=== PATIENT | male | born 1995 | race Caucasian/White ===

== ENCOUNTER → 2016-04-25 | Outpatient (CLI) | payer OTHER ==
[~2016-04-25] MED LIST: CARB200 PO; HYDR-3534 PO; NAPR550 PO
== END ==
LOC: PLAB 09:29
PROVIDERS: ATTEND Psychiatry & Neurology Neurology
DX: G40.909 Epilepsy, unspecified, not intractable, without status epilepticus (principal)
CPT/HCPCS: 80156

== ENCOUNTER → 2016-07-14 | Outpatient (CLI) | payer OTHER | LOC: PLAB 08:56 | PROVIDERS: ATTEND Psychiatry & Neurology Neurology | DX: G40.909 Epilepsy, unspecified, not intractable, without status epilepticus (principal) | CPT/HCPCS: 80156 ==

== ENCOUNTER 2016-10-20 17:48 | Emergency (ER) | payer OTHER ==
[~2016-10-20] VITALS: Ht 175.3 cm; Wt 66.0 kg
[2016-10-20 18:04] VITALS: BP 149/94; PULSE 70; RESP 16; TEMP 98.8; O2SAT 98
[2016-10-20] MEDS ORDERED: CARB200T PO ×2 (18:16)
--- NOTE | 2016-10-20 18:47 | PD ---
HPI Chief Complaint: Seizure Time Seen by Provider: 18:32 Travel History International Travel<30 days: No Contact w/Intl Traveler<30days: No Traveled to known affect area: No History of Present Illness HPI 21yo M with PMH of epilepsy on tegretol presents to the ED with c/o throat pain 2 days ago. Then he started having productive cough, nasal congestion, and episode of NBNB vomiting yesterday. States he has midsternal chest pain that is sharp when he takes a deep breath. Also feels sob. +Low grade fever yesterday. +Generalized weakness. Pt states that he had 4 focal seizures today and during those focal seizures, he did not have any LOC or fall. Pt follows with Dr. Palomares and last visit was about 1 week ago. Last generalized tonic clonic seizure was 2 years ago. Denies any abdominal pain, focal weakness or numbness. Pt also had reactive airway disease as a child and was using albuterol. PFSH Past Medical History Arthritis: No Autoimmune Disease: No Cancer: No Cardiovascular Problems: No Cerebrovascular Accident: No Diabetes: No Diminished Hearing: No Endocrine: No Gastrointestinal Disorders: No Genitourinary: No Headaches: Yes Hepatitis: No Hiatal Hernia: No Hypertension: No Immune Disorder: No Medical other: No Musculoskeletal: Yes (FX LT WRIST, FX LEFT ANKLE) Neurologic: Yes Psychiatric: No Reproductive: No Respiratory: No Immunizations Current: Yes Migraines: No Seizures: Yes Thyroid Disease: No Past Surgical History Abdominal Surgery: No AICD: No Body Medical Devices: LEFT ANKLE HARDWARE Cardiac Surgery: No Ear Surgery: No Endocrine Surgery: No Eye Surgery: No Genitourinary Surgery: Yes (Right inguinal hernia repair) Gynecologic Surgery: No Joint Replacement: No Oral Surgery: Yes (wisdom tooth extraction x 4) Pacemaker: No Thoracic Surgery: No Other Surgery: Yes (I &D on left leg on 07/03/13) Social History Alcohol Use: Yes ("MAYBE ONCE A MONTH") Tobacco Use: No Substance Use: Yes (ROSSANA OCCASIONALLY) Allergies-Medications (Allergen,Severity, Reaction): Coded Allergies: No Known Allergies (Verified , 10/20/16) Reported Meds & Prescriptions Reported Meds & Active Scripts Active Proventil Hfa 6.7 GM Inh (Albuterol Sulfate) 90 Mcg/Act Aer 2 Puff INH Q4-6H PRN Reported Carbamazepine 200 Mg Tab 400 Mg PO HS Carbamazepine 200 Mg Tab 200 Mg PO DAILY Review of Systems Except as stated in HPI: all other systems reviewed are Neg Physical Exam Narrative GENERAL: 21yo M not in distress. SKIN: Focused skin assessment warm/dry. HEAD: Atraumatic. Normocephalic. EYES: Pupils equal and round at 4mm bilaterally. EOMI. No scleral icterus. No injection or drainage. ENT: No nasal bleeding or discharge. Mucous membranes pink and moist. NECK: Trachea midline. No JVD. No nuchal rigidity. CARDIOVASCULAR: Regular rate and rhythm. No murmur appreciated. RESPIRATORY: No accessory muscle use. Inspiratory wheezing. GASTROINTESTINAL: Abdomen soft, non-tender, nondistended. No rebound tenderness or guarding. MUSCULOSKELETAL: No obvious deformities. No clubbing. No cyanosis. No edema. NEUROLOGICAL: Awake and alert. No obvious cranial nerve deficits. Motor grossly within normal limits. Normal speech. PSYCHIATRIC: Appropriate mood and affect; insight and judgment normal. Data Data Last Documented VS Vital Signs Date Time Temp Pulse Resp B/P Pulse Ox O2 Delivery O2 Flow Rate FiO2 10/20/16 21:20 98.4 83 17 119/66 98 10/20/16 20:22 Room Air Orders Complete Blood Count With Diff (10/20/16 18:44) Basic Metabolic Panel (Bmp) (10/20/16 18:44) Magnesium (Mg) (10/20/16 18:44) Chest, Single Ap (10/20/16 ) Group A Rapid Strep Screen (10/20/16 18:44) Urinalysis - C+S If Indicated (10/20/16 18:44) Carbamazepine (Tegretol) (10/20/16 18:44) D-Dimer (10/20/16 18:47) Prothrombin Time / Inr (Pt) (10/20/16 18:47) Act Partial Throm Time (Ptt) (10/20/16 18:47) Albuterol-Ipratropium Neb (Duoneb Neb) (10/20/16 19:00) Troponin I (10/20/16 18:44) Electrocardiogram (10/20/16 ) Strep Culture (Group A) (10/20/16 19:10) Sodium Chlor 0.9% 1000 Ml Inj (Ns 1000 M (10/20/16 20:00) Ct Pulmonary Angiogram (10/20/16 ) Iohexol 350 Inj (Omnipaque 350 Inj) (10/20/16 20:28) Labs Laboratory Tests Test 10/20/16 10/20/16 19:10 19:25 White Blood Count 7.2 TH/MM3 Red Blood Count 5.12 MIL/MM3 Hemoglobin 15.3 GM/DL Hematocrit 45.0 % Mean Corpuscular Volume 87.9 FL Mean Corpuscular Hemoglobin 29.8 PG Mean Corpuscular Hemoglobin 33.9 % Concent Red Cell Distribution Width 11.7 % Platelet Count 179 TH/MM3 Mean Platelet Volume 7.6 FL Neutrophils (%) (Auto) 67.4 % Lymphocytes (%) (Auto) 20.8 % Monocytes (%) (Auto) 7.6 % Eosinophils (%) (Auto) 3.8 % Basophils (%) (Auto) 0.4 % Neutrophils # (Auto) 4.9 TH/MM3 Lymphocytes # (Auto) 1.5 TH/MM3 Monocytes # (Auto) 0.5 TH/MM3 Eosinophils # (Auto) 0.3 TH/MM3 Basophils # (Auto) 0.0 TH/MM3 CBC Comment DIFF FINAL Differential Comment Prothrombin Time 10.8 SEC Prothromb Time International 1.0 RATIO Ratio Activated Partial 30.1 SEC Thromboplast Time D-Dimer Quantitative (PE/DVT) 0.77 MG/L FEU Sodium Level 142 MEQ/L Potassium Level 4.5 MEQ/L Chloride Level 109 MEQ/L Carbon Dioxide Level 27.6 MEQ/L Anion Gap 5 MEQ/L Blood Urea Nitrogen 16 MG/DL Creatinine 0.99 MG/DL Estimat Glomerular Filtration 94 ML/MIN Rate Random Glucose 92 MG/DL Calcium Level 9.4 MG/DL Magnesium Level 2.3 MG/DL Troponin I LESS THAN 0.02 NG/ML Carbamazepine (Tegretol) Level 7.1 MCG/ML Urine Color YELLOW Urine Turbidity CLEAR Urine pH 6.0 Urine Specific [place] 1.026 Urine Protein TRACE mg/dL Urine Glucose (UA) NEG mg/dL Urine Ketones NEG mg/dL Urine Occult Blood NEG Urine Nitrite NEG Urine Bilirubin NEG Urine Leukocyte Esterase NEG Urine WBC 0-2 /hpf Urine Squamous Epithelial 0-5 /hpf Cells Microscopic Urinalysis Comment CULT NOT INDICATED MDM Medical Decision Making Medical Screen Exam Complete: Yes Emergency Medical Condition: Yes Differential Diagnosis Pneumonia vs. URI vs. viral syndrome vs. electrolyte abnormality Narrative Course 21yo M with epilepsy here with multiple complaints. Pt has URI symptoms and is wheezing on exam. Since albuterol worked for him as a child, will give a few treatments. Pt was seen at the end of my shift so care was transferred to [facility] ED attending Dr. Ruiz. Will obtain labs, CXR and reevaluate. Diagnosis Primary Impression: Mild reactive airways disease Scripts Albuterol 6.7 GM Inh (Proventil Hfa 6.7 GM Inh)90 Mcg/Act Aer2 Puff INH Q4-6H PRN (SHORTNESS OF BREATH) #1 INHALER Ref 0 Prov:Nati Ruiz MD 10/20/16 Karen Byrne DO Oct 20, 2016 18:47
[2016-10-20 19:00] VITALS: BP 132/72; PULSE 68; RESP 17; O2SAT 98
[2016-10-20] MEDS: RESP: ALBUTEROL 2.5 MG/IPRATROPIUM 0.5 MG NEB (SCH) INH (19:00)
--- NOTE | 2016-10-20 19:12 | PD ---
Physical Exam Date Seen by Provider: Oct 20, 2016 Time Seen by Provider: 19:11 Narrative Accepted in transfer of care from Dr. Byrne GENERAL: Well-developed well-nourished male in no acute distress no respiratory distress SKIN: Warm and dry. NECK: Supple, trachea midline. No JVD or lymphadenopathy. CARDIOVASCULAR: Regular rate and rhythm without murmurs, gallops, or rubs. RESPIRATORY: Breath sounds equal bilaterally few end expiratory wheezes. No accessory muscle use. MUSCULOSKELETAL: No cyanosis, or edema. Data Data Last Documented VS Vital Signs Date Time Temp Pulse Resp B/P Pulse Ox O2 Delivery O2 Flow Rate FiO2 10/20/16 20:22 90 18 112/83 95 Room Air 10/20/16 18:04 98.8 Orders Complete Blood Count With Diff (10/20/16 18:44) Basic Metabolic Panel (Bmp) (10/20/16 18:44) Magnesium (Mg) (10/20/16 18:44) Chest, Single Ap (10/20/16 ) Group A Rapid Strep Screen (10/20/16 18:44) Urinalysis - C+S If Indicated (10/20/16 18:44) Carbamazepine (Tegretol) (10/20/16 18:44) D-Dimer (10/20/16 18:47) Prothrombin Time / Inr (Pt) (10/20/16 18:47) Act Partial Throm Time (Ptt) (10/20/16 18:47) Albuterol-Ipratropium Neb (Duoneb Neb) (10/20/16 19:00) Troponin I (10/20/16 18:44) Electrocardiogram (10/20/16 ) Strep Culture (Group A) (10/20/16 19:10) Sodium Chlor 0.9% 1000 Ml Inj (Ns 1000 M (10/20/16 20:00) Ct Pulmonary Angiogram (10/20/16 ) Iohexol 350 Inj (Omnipaque 350 Inj) (10/20/16 20:28) Labs Laboratory Tests Test 10/20/16 10/20/16 19:10 19:25 White Blood Count 7.2 TH/MM3 Red Blood Count 5.12 MIL/MM3 Hemoglobin 15.3 GM/DL Hematocrit 45.0 % Mean Corpuscular Volume 87.9 FL Mean Corpuscular Hemoglobin 29.8 PG Mean Corpuscular Hemoglobin 33.9 % Concent Red Cell Distribution Width 11.7 % Platelet Count 179 TH/MM3 Mean Platelet Volume 7.6 FL Neutrophils (%) (Auto) 67.4 % Lymphocytes (%) (Auto) 20.8 % Monocytes (%) (Auto) 7.6 % Eosinophils (%) (Auto) 3.8 % Basophils (%) (Auto) 0.4 % Neutrophils # (Auto) 4.9 TH/MM3 Lymphocytes # (Auto) 1.5 TH/MM3 Monocytes # (Auto) 0.5 TH/MM3 Eosinophils # (Auto) 0.3 TH/MM3 Basophils # (Auto) 0.0 TH/MM3 CBC Comment DIFF FINAL Differential Comment Prothrombin Time 10.8 SEC Prothromb Time International 1.0 RATIO Ratio Activated Partial 30.1 SEC Thromboplast Time D-Dimer Quantitative (PE/DVT) 0.77 MG/L FEU Sodium Level 142 MEQ/L Potassium Level 4.5 MEQ/L Chloride Level 109 MEQ/L Carbon Dioxide Level 27.6 MEQ/L Anion Gap 5 MEQ/L Blood Urea Nitrogen 16 MG/DL Creatinine 0.99 MG/DL Estimat Glomerular Filtration 94 ML/MIN Rate Random Glucose 92 MG/DL Calcium Level 9.4 MG/DL Magnesium Level 2.3 MG/DL Troponin I LESS THAN 0.02 NG/ML Carbamazepine (Tegretol) Level 7.1 MCG/ML Urine Color YELLOW Urine Turbidity CLEAR Urine pH 6.0 Urine Specific [place] 1.026 Urine Protein TRACE mg/dL Urine Glucose (UA) NEG mg/dL Urine Ketones NEG mg/dL Urine Occult Blood NEG Urine Nitrite NEG Urine Bilirubin NEG Urine Leukocyte Esterase NEG Urine WBC 0-2 /hpf Urine Squamous Epithelial 0-5 /hpf Cells Microscopic Urinalysis Comment CULT NOT INDICATED [facility] Medical Record Reviewed: Yes Supervised Visit with AIYANA: No Interpretation(s) EKG normal sinus rhythm rate 83 incomplete right bundle-branch block no acute ST elevation or injury pattern change noted Chest x-ray no lobar infiltrate Rapid strep antigen negative CBC is automated differential values in normal range Metabolic panel grossly within normal limits; troponin I: Less than 0.02, not elevated Coagulation studies and normal range; d-dimer elevated at 0.77 Tegretol level: 7.1, therapeutic CBC & BMP Diagram 10/20/16 19:10 Vital Signs Date Time Temp Pulse Resp B/P Pulse Ox O2 Delivery O2 Flow Rate FiO2 10/20/16 20:22 90 18 112/83 95 Room Air 10/20/16 19:00 68 17 132/72 98 Room Air 10/20/16 18:04 98.8 70 16 149/94 98 Last Impressions Chest X-Ray 10/20/16 0000 Signed Impressions: Service Date/Time: October 19:20 - CONCLUSION: No acute cardiopulmonary disease. Martha Alston MD CT Angiography 10/20/16 0000 Signed Impressions: Service Date/Time: October 19:59 - CONCLUSION: Unremarkable study. Martha Alston MD Differential Diagnosis Accepted in transfer of care from Dr. Byrne; please refer to her dictation Narrative Course Accepted in transfer of care from Dr. Byrne; follow up of pending diagnostics and disposition Patient reports that he is symptomatically improved after DuoNeb updraft; patient informed that d-dimer is elevated EKG shows incomplete right bundle branch block in view of pleuritic type chest pain with breath will proceed with CT pulmonary angiogram to evaluate for PE chest x-ray reveals no infiltrate Patient informed that rapid strep antigen is negative and Trileptal level is therapeutic; patient continues to report feeling improved; patient reports now that not only did he have for 5-10 seconds induration focal-type seizures typical for him but yesterday had an episode of 10-15 seconds of typical focal type seizure and then the day before on Monday actually had a three-minute episode of focal type seizure activity and that episode of vomiting afterwards. Patient did not contact his neurologist for any of these events. There is been no change in his medications. Patient has had mild increase stress to assist him because of respiratory illness but does not report any other stressors or sleep deprivation. Patient aware of lab results including therapeutic range of Tegretol 0.1; call placed to patient's neurologist Dr. Palomares but unable to contact this provider therefore consult to the emergency department to field operations farm manager neurologist Dr. Camarillo recommends patient have increased dosing of his Tegretol to 400 mg twice daily increasing the morning dose from 200 mg to 400 mg and continue his evening dose of 400 mg at bedtime. She is to follow up closely with his primary neurologist times one day. Patient is increase hydration. No work until follow-up with her neurologist. Monitor temperature every 4 hours and take appropriate antipyretics. Physician Communication Physician Communication call placed to neurology Diagnosis Primary Impression: Viral syndrome Additional Impressions: Seizure disorder Mild reactive airways disease Referrals: Neurologist 1 day Primary Care Physician call for appointment Patient Instructions: General Instructions Additional Instruction: Increase fluid hydration No work 2 days Follow-up with Dr. Palomares: Office in a.m. Follow-up with primary care provider Return to the emergency department for any concerns or change in condition Monitor temperature every 4 hours with thermometer and take as needed acetaminophen/Tylenol every 4 hours for fever 100.4F or greater and/or ibuprofen/Advil/Motrin 400-600 mg as often as every 6 hours as needed for fever 100.4F or greater or for pain associated with inflammation Increase Tegretol dosing to 400 mg twice daily Use inhaler as prescribed as needed for wheezing Med/Other Pt SpecificInfo: Prescription(s) given Scripts Albuterol 6.7 GM Inh (Proventil Hfa 6.7 GM Inh)90 Mcg/Act Aer2 Puff INH Q4-6H PRN (SHORTNESS OF BREATH) #1 INHALER Ref 0 Prov:Nati Ruiz MD 10/20/16 Disposition: 01 DISCHARGE HOME Condition: Stable Nati Ruiz MD Oct 20, 2016 19:12
[2016-10-20 19:19] LABS: AUTOMATED NEUTROPHIL # 4.9 TH/MM3 (1.8-7.7); BASOPHIL % 0.4 % (0.0-2.0); EOSINOPHIL # 0.3 TH/MM3 (0-0.4); EOSINOPHIL % 3.8 % (0.0-4.0); HEMO FLAGS DIFF FINAL; LYMPH % 20.8 % (9.0-44.0); LYMPHOCYTE # 1.5 TH/MM3 (1.0-4.8); MEAN CELL VOLUME 87.9 FL (80.0-100.0); MEAN CORPUSCULAR HEMOGLOBIN 29.8 PG (27.0-34.0); MEAN CORPUSCULAR HGB CONC 33.9 % (32.0-36.0); MONO % 7.6 % (0.0-8.0); NEUT % 67.4 % (16.0-70.0); PLATELET COUNT 179 TH/MM3 (150-450); RED BLOOD COUNT 5.12 MIL/MM3 (4.50-5.90); RED CELL DISTRIBUTION WIDTH 11.7 % (11.6-17.2); WHITE BLOOD COUNT 7.2 TH/MM3 (4.0-11.0)
[2016-10-20 19:26] LABS: CHLORIDE 109 MEQ/L (98-107); POTASSIUM 4.5 MEQ/L (3.5-5.1); SODIUM (NA) 142 MEQ/L (136-145)
[2016-10-20 19:29] LABS: ANION GAP 5 MEQ/L (5-15); BICARBONATE 27.6 MEQ/L (21.0-32.0); MAGNESIUM 2.3 MG/DL (1.5-2.5)
[2016-10-20 19:30] LABS: BLOOD UREA NITROGEN 16 MG/DL (7-18)
[2016-10-20 19:33] LABS: GLOMERULAR FILTRATION RATE 94 ML/MIN (>89)
[2016-10-20 19:34] LABS: BLOOD, URINE NEG (NEG); GLUCOSE,URINE NEG (NEG); KETONE, URINE NEG (NEG); NITRITE,URINE NEG (NEG)
[2016-10-20 19:35] LABS: APTT (PATIENT) 30.1 SEC (24.3-30.1); PROTHROMBIN TIME - PATIENT 10.8 SEC (9.8-11.6)
[2016-10-20 19:45] LABS: URINE COLOR YELLOW (YELLW/STRAW)
[2016-10-20 19:46] LABS: COMMENT (UR) CULT NOT INDICATED; CULTURE IF INDICATED CULT NOT INDICATED; SQUAMOUS EPITHELIAL CELL URINE 0-5 /hpf (0-5); WBC, URINE 0-2 /hpf (0-5)
--- NOTE | 2016-10-20 19:50 | RADRPT ---
EXAM DATE/TIME: 10/20/2016 19:20 [facility] COMPARISON: CHEST SINGLE AP, July 14, 2013, 16:17. INDICATIONS : Shortness of breath, cough, congestion, and sore throat. MEDICAL HISTORY : Seizures. SURGICAL HISTORY : Left ankle. ENCOUNTER: Initial ACUITY: 1 day PAIN SCORE: 0/10 LOCATION: Bilateral chest FINDINGS: The lungs are clear without infiltrate, nodule, or mass. There is no appreciable pleural effusion fo r technique. Heart and mediastinum are unremarkable. CONCLUSION: No acute cardiopulmonary disease. Martha Alston MD on October 20, 2016 at 19:46 Board Certified Radiologist. This report was verified electronically.
[2016-10-20] MEDS ORDERED: SODIUM CHLOR 0.9% 1000 ML INJ 1,000 ML IV ONE (20:00)
[2016-10-20 20:22] VITALS: BP 112/83; PULSE 90; RESP 18; O2SAT 95
[2016-10-20] MEDS ORDERED: IOHEXOL 350 MG/ML 10 ML VIAL (for RAD DIAG) IV ONE (20:28)
--- NOTE | 2016-10-20 20:42 | RADRPT ---
EXAM DATE/TIME: 10/20/2016 19:59 [facility] COMPARISON: No previous studies available for comparison. INDICATIONS : Status post seizure activity. Patient short of breath. IV CONTRAST: 75 cc Omnipaque 350 (iohexol) IV RADIATION DOSE: 7.26 CTDIvol (mGy) MEDICAL HISTORY : Seizures. Hernia, inguinal. SURGICAL HISTORY : Inguinal hernia repair. ENCOUNTER: Initial ACUITY: 1 day PAIN SCALE: 4/10 LOCATION: chest TECHNIQUE: Volumetric scanning of the chest was performed using a pulmonary embolism protocol MIP images were re constructed. Using automated exposure control and adjustment of the mA and/or kV according to patien t size, radiation dose was kept as low as reasonably achievable to obtain optimal diagnostic quality images. DICOM format image data is available electronically for review and comparison. Follow-up recommendations for incidentally detected pulmonary nodules are based at a minimum on nodul e size and patient risk factors according to Fleischner Society Guidelines. FINDINGS: The lungs are clear without infiltrate, nodule, or mass. There is no pleural effusion. No appreciab le pathological adenopathy is seen within the mediastinum. There is no evidence for PE for technique. CONCLUSION: Unremarkable study. Martha Alston MD on October 20, 2016 at 20:39 Board Certified Radiologist. This report was verified electronically.
[2016-10-20] MEDS ORDERED: ALBU6.7H INH (21:18)
[2016-10-20 21:20] VITALS: BP 119/66; TEMP 98.4
--- NOTE | 2016-10-22 11:02 | EKG ---
Date Performed: 10/20/2016 Time Performed: 19:15:30 PTAGE: 21 years EKG: Sinus rhythm WITH SINUS ARRHYTHMIA INCOMPLETE RIGHT BUNDLE BRANCH BLOCK BORDERLINE ECG PREVIOUS TRACING : 09/23/2013 14.56 DOCTOR: Barrington Botello Interpretating Date/Time 10/22/2016 10:56:11
== END 2016-10-20 21:44 | disposition home or self-care (01) ==
LOC: PHED 17:48
DX: B34.9 Viral infection, unspecified (principal); G40.409 Other generalized epilepsy and epileptic syndromes, not intractable, without status epilepticus; J45.909 Unspecified asthma, uncomplicated; I45.10 Unspecified right bundle-branch block; R06.02 Shortness of breath; R53.1 Weakness; Z79.899 Other long term (current) drug therapy
CPT/HCPCS: 71010; 71275; 80048; 80156; 81001; 83735; 84484; 85025; 85379; 85610; 85730; 87081; 87880; 93005; 94640; 94664; 96360; 99285; J7030; Q9967

== ENCOUNTER 2016-12-18 12:48 | Emergency (ER) | payer OTHER ==
[~2016-12-18 12:48] MED LIST changes: +ALBU6.7H INH; -CARB200 PO; +CARB200T PO; -HYDR-3534 PO; -NAPR550 PO
[2016-12-18 12:50] VITALS: BP 132/66; PULSE 82; RESP 20; TEMP 98; O2SAT 99
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
[2016-12-18 13:29] VITALS: BP 102/55; PULSE 82; RESP 20; O2SAT 100
[2016-12-18] MEDS ORDERED: ACETAMINOPHEN 325 MG TAB PO ONE (13:30)
[2016-12-18 14:22] VITALS: BP 102/53; PULSE 63; RESP 20
== END 2016-12-18 14:54 | disposition home or self-care (01) ==
LOC: PHED 12:48
DX: G40.909 Epilepsy, unspecified, not intractable, without status epilepticus (principal)
CPT/HCPCS: 80156; 99283

== ENCOUNTER 2016-12-18 15:48 | Inpatient (IN) | payer OTHER ==
[~2016-12-18] VITALS: Ht 175.3 cm; Wt 72.0 kg
[2016-12-18 15:55] VITALS: BP 145/71; PULSE 84; RESP 16; TEMP 98; O2SAT 97
[2016-12-18 16:10] VITALS: O2SAT 98
[2016-12-18 16:14] LABS: AUTOMATED NEUTROPHIL # 7.1 TH/MM3 (1.8-7.7); BASOPHIL # 0.1 TH/MM3 (0-0.2); BASOPHIL % 0.7 % (0.0-2.0); EOSINOPHIL % 0.5 % (0.0-4.0); HEMATOCRIT 43.1 % (39.0-51.0); HEMO FLAGS DIFF FINAL; LYMPH % 8.1 % (9.0-44.0); LYMPHOCYTE # 0.7 TH/MM3 (1.0-4.8); MEAN CELL VOLUME 89.7 FL (80.0-100.0); MEAN CORPUSCULAR HEMOGLOBIN 30.8 PG (27.0-34.0); MEAN CORPUSCULAR HGB CONC 34.3 % (32.0-36.0); MONO % 2.3 % (0.0-8.0); NEUT % 88.4 % (16.0-70.0); PLATELET COUNT 173 TH/MM3 (150-450); RED BLOOD COUNT 4.81 MIL/MM3 (4.50-5.90); RED CELL DISTRIBUTION WIDTH 12.3 % (11.6-17.2); WHITE BLOOD COUNT 8.1 TH/MM3 (4.0-11.0)
[2016-12-18] MEDS ORDERED: SODIUM CHLORIDE 0.9% FLUSH 10 ML FLUSH IVF PRN ×2 (16:15→17:45)
[2016-12-18 16:24] LABS: CHLORIDE 107 MEQ/L (98-107); POTASSIUM 4.4 MEQ/L (3.5-5.1); SODIUM (NA) 139 MEQ/L (136-145)
[2016-12-18 16:28] LABS: ANION GAP 8 MEQ/L (5-15); BICARBONATE 24.3 MEQ/L (21.0-32.0); BLOOD UREA NITROGEN 10 MG/DL (7-18)
[2016-12-18] MEDS ORDERED: FOSPHENYTOIN INJ 1,000 MGPE in SODIUM CHLORIDE 0.9% INJ 50 ML IV ONE (16:30)
[2016-12-18 16:31] LABS: ALT (GPT) 50 U/L (12-78); AST (GOT) 26 U/L (15-37); GLOMERULAR FILTRATION RATE 94 ML/MIN (>89)
[2016-12-18 16:33] LABS: TOTAL BILIRUBIN ADULT 0.2 MG/DL (0.2-1.0)
[2016-12-18 16:34] LABS: ALKALINE PHOSPHATASE 72 U/L (45-117)
--- NOTE | 2016-12-18 16:40 | RADRPT ---
EXAM DATE/TIME: 12/18/2016 16:22 [facility] COMPARISON: CT BRAIN W/O CONTRAST, July 14, 2013, 17:05. INDICATIONS : Seizure. RADIATION DOSE: 58.35 CTDIvol (mGy) MEDICAL HISTORY : Seizures. SURGICAL HISTORY : None. ENCOUNTER: Initial ACUITY: 1 day PAIN SCALE: 0/10 LOCATION: cranial TECHNIQUE: Multiple contiguous axial images were obtained of the head. Using automated exposure control and adj ustment of the mA and/or kV according to patient size, radiation dose was kept as low as reasonably a chievable to obtain optimal diagnostic quality images. DICOM format image data is available electro nically for review and comparison. FINDINGS: CEREBRUM: The ventricles are normal for age. No evidence of midline shift, mass lesion, hemorrhage or acute in farction. No extra-axial fluid collections are seen. POSTERIOR FOSSA: The cerebellum and brainstem are intact. The 4th ventricle is midline. The cerebellopontine angle i s unremarkable. EXTRACRANIAL: The visualized portion of the orbits is intact. SKULL: The calvaria is intact. No evidence of skull fracture. CONCLUSION: Negative exam Donell Lara MD on December 18, 2016 at 16:37 Board Certified Radiologist. This report was verified electronically.
[2016-12-18 16:42] VITALS: BP 118/71; PULSE 73; RESP 20; O2SAT 98
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
[2016-12-18] MEDS ORDERED: SODIUM CHLOR 0.9% 1000 ML INJ 1,000 ML IV ONE (17:30)
[2016-12-18] MEDS ORDERED: KETOROLAC TROMETHAMINE 30 MG/ML (IVP) VIAL IV PUSH ONE (17:30)
[2016-12-18] MEDS ORDERED: SODIUM CHLORIDE 0.9% FLUSH 10 ML FLUSH IV FLUSH PRN (17:45)
[2016-12-18] MEDS ORDERED: NALOXONE HCL 0.4 MG/ML AMP IV PRN (17:45)
[2016-12-18] MEDS ORDERED: BISACODYL 10 MG SUPP RECTAL PRN (18:00)
[2016-12-18] MEDS ORDERED: LORazepam 2 MG/ML VIAL IV PUSH PRN (18:00)
[2016-12-18] MEDS ORDERED: SENNOSIDES 8.6 MG TAB PO PRN (18:00)
[2016-12-18] MEDS ORDERED: MAGNESIUM HYDROXIDE SUSP 30 ML CUP PO PRN (18:00)
[2016-12-18] MEDS ORDERED: LACTULOSE SYRUP 20 GM/30 ML CUP PO PRN (18:00)
[2016-12-18] MEDS ORDERED: ACETAMINOPHEN 325 MG TAB PO PRN (18:00)
[2016-12-18] MEDS ORDERED: ACETAMINOPHEN/HYDROcodone 325 MG/5 MG TAB PO PRN (18:00)
--- NOTE | 2016-12-18 18:38 | HHI.HP ---
[facility] Service [facility] Primary Care Physician Shashi Lai MD Admission Diagnosis uncontrolled seizure Diagnoses: (1) Recurrent seizures (2) Seizure disorder Travel History International Travel<30 Days: No Contact w/Intl Traveler <30 Da: No Traveled to Known Affected Are: No History of Present Illness This is a 21 year-old male with past medical history of seizure disorder who presents today with 3 seizures. History obtained from the patient and his girlfriend. Normally he has partial seizures which consist of lip smacking however this morning his girlfriend states that he had a sustained tonic-clonic seizure lasting 10 minutes. She rolled him on his side. There is no tongue bite, loss of bowel or bladder continence. [facility] was called however the patient declined to come to the hospital. He slept and when he awoke several hours later he had another sustained seizure. [facility] was called again and he was brought to the hospital. He was discharged from the emergency department and his girlfriend states on the on the way home he sustained another seizure and thus was brought back to the emergency department. He was loaded with 1000 phenytoin equivalents of Cerebyx in the emergency department. The patient denies any recent changes to his seizure medications. He takes Tegretol. He denies headache, neck pain, fever, chills. Denies drug use. His neurologist is Dr. Palomares. Past Family Social History Past Medical History Seizure disorder Migraines Past Surgical History Ankle surgery in the right ankle Reported Medications Allergies Coded Allergies Type Severity Reaction Last Updated Verified No Known Allergies 12/18/16 Yes Active Scripts Medications Dose Route/Sig Max Daily Dose Days Date Category Carbamazepine 200 Mg Tab 400 Mg PO HS 10/20/16 Reported Carbamazepine 200 Mg Tab 200 Mg PO DAILY 10/20/16 Reported Allergies: Coded Allergies: No Known Allergies (Verified , 12/18/16) Family History Negative for seizures Social History Denies alcohol tobacco or drug use Physical Exam Vital Signs Vital Signs Date Time Temp Pulse Resp B/P (MAP) Pulse Ox O2 Delivery O2 Flow Rate FiO2 12/18/16 16:42 73 20 118/71 (87) 98 12/18/16 16:10 98 12/18/16 15:55 98.0 84 16 145/71 (95) 97 Physical Exam GENERAL: This is a well-nourished, well-developed patient, in no apparent distress. SKIN: No rashes, ecchymoses or lesions. Cool and dry. HEAD: Atraumatic. Normocephalic. No temporal or scalp tenderness. EYES: Pupils equal round and reactive. Extraocular motions intact. No scleral icterus. No injection or drainage. ENT: No tongue lacerations. Throat without erythema, tonsillar hypertrophy or exudate. Uvula midline. Airway patent. NECK: Trachea midline. No JVD or lymphadenopathy. Supple, nontender, no meningeal signs. CARDIOVASCULAR: Regular rate and rhythm without murmurs, gallops, or rubs. RESPIRATORY: Clear to auscultation. Breath sounds equal bilaterally. No wheezes , rales, or rhonchi. GASTROINTESTINAL: Abdomen soft, non-tender, nondistended. No hepato-splenomegaly , or palpable masses. No guarding. MUSCULOSKELETAL: Extremities without clubbing, cyanosis, or edema. No joint tenderness, effusion, or edema noted. NEUROLOGICAL: Awake and alert. Cranial nerves II through XII intact. Motor and sensory grossly within normal limits. Five out of 5 muscle strength in all muscle groups. Normal speech. Laboratory Laboratory Tests Test 12/18/16 16:10 White Blood Count 8.1 Red Blood Count 4.81 Hemoglobin 14.8 Hematocrit 43.1 Mean Corpuscular Volume 89.7 Mean Corpuscular Hemoglobin 30.8 Mean Corpuscular Hemoglobin Concent 34.3 Red Cell Distribution Width 12.3 Platelet Count 173 Mean Platelet Volume 7.4 Neutrophils (%) (Auto) 88.4 Lymphocytes (%) (Auto) 8.1 Monocytes (%) (Auto) 2.3 Eosinophils (%) (Auto) 0.5 Basophils (%) (Auto) 0.7 Neutrophils # (Auto) 7.1 Lymphocytes # (Auto) 0.7 Monocytes # (Auto) 0.2 Eosinophils # (Auto) 0.0 Basophils # (Auto) 0.1 CBC Comment DIFF FINAL Differential Comment Blood Urea Nitrogen 10 Creatinine 0.99 Random Glucose 108 Total Protein 7.1 Albumin 4.3 Calcium Level 8.5 Alkaline Phosphatase 72 Aspartate Amino Transf (AST/SGOT) 26 Alanine Aminotransferase (ALT/SGPT) 50 Total Bilirubin 0.2 Sodium Level 139 Potassium Level 4.4 Chloride Level 107 Carbon Dioxide Level 24.3 Anion Gap 8 Estimat Glomerular Filtration Rate 94 Result Diagram: 12/18/16 1610 12/18/16 1610 Imaging Last Impressions Head CT 12/18/16 0000 Signed Impressions: Service Date/Time: Sunday, December 18, 2016 16:22 - CONCLUSION: Negative exam Donell Lara MD Capmaribel VTE Risk Assessment Caprini VTE Risk Assessment: No/Low Risk (score <= 1) Caprini Risk Assessment Model Point Value = 1 Point Value = 2 Point Value = 3 Point Value = 5 Age 41-60 Minor surgery BMI > 25 kg/m2 Swollen legs Varicose veins or History of unexplained or recurrent spontaneous Oral contraceptives or hormone replacement Sepsis (< 1 month) Serious lung disease, including pneumonia (< 1 month) Abnormal pulmonary function Acute myocardial infarction Congestive heart failure (< 1 month) History of inflammatory bowel disease Medical patient at bed rest Age 61-74 Arthroscopic surgery Major open surgery (> 45 min) Laparoscopic surgery (> 45 min) Malignancy Confined to bed (> 72 hours) Immobilizing plaster cast Central venous access Age >= 75 History of VTE Family history of VTE Factor V Leiden Prothrombin [id number] Lupus anticoagulant Anticardiolipin antibodies Elevated serum homocysteine Heparin-induced thrombocytopenia Other congenital or acquired thrombophilia Stroke (< 1 month) Elective arthroplasty Hip, pelvis, or leg fracture Acute spinal cord injury (< 1 month) Prophylaxis Regimen Total Risk Factor Score Risk Level Prophylaxis Regimen 0-1 Low Early ambulation 2 Moderate Order ONE of the following: *Sequential Compression Device (SCD) *Heparin 5000 units SQ BID 3-4 Higher Order ONE of the following medications: *Heparin 5000 units SQ TID *Enoxaparin/Lovenox 40 mg SQ daily (WT < 150 kg, CrCl > 30 mL/min) *Enoxaparin/Lovenox 30 mg SQ daily (WT < 150 kg, CrCl > 10-29 mL/min) *Enoxaparin/Lovenox 30 mg SQ BID (WT < 150 kg, CrCl > 30 mL/min) AND/OR *Sequential Compression Device (SCD) 5 or more Highest Order ONE of the following medications: *Heparin 5000 units SQ TID (Preferred with Epidurals) *Enoxaparin/Lovenox 40 mg SQ daily (WT < 150 kg, CrCl > 30 mL/min) *Enoxaparin/Lovenox 30 mg SQ daily (WT < 150 kg, CrCl > 10-29 mL/min) *Enoxaparin/Lovenox 30 mg SQ BID (WT < 150 kg, CrCl > 30 mL/min) AND *Sequential Compression Device (SCD) Assessment and Plan Assessment and Plan -Breakthrough seizures, negative head CT. We'll continue with Cerebyx loading. Consult neurology. Check EEG. Monitor him on telemetry as this is his third seizure in 24 hour period. -DVT prophylaxis with SCDs. Rianna Barrera MD Dec 18, 2016 18:38
[2016-12-18 20:00] VITALS: PULSE 71
[2016-12-18] MEDS ORDERED: SODIUM CHLORIDE 0.9% FLUSH 10 ML FLUSH IV FLUSH SCH (21:00)
[2016-12-18] MEDS ORDERED: carBAMazepine 200 MG TAB PO SCH (21:00)
[2016-12-18 21:09] VITALS: BP 121/63; PULSE 70; RESP 18; TEMP 98.3; O2SAT 99
[2016-12-18] MEDS: SODIUM CHLORIDE 0.9% FLUSH 10 ML FLUSH IV FLUSH SCH (21:21)
[2016-12-18 21:30] VITALS: O2SAT 100
[2016-12-19] VITALS (8 sets, daily range): BP systolic 121–131; BP diastolic 69–78; PULSE 56–70; RESP 16–18; TEMP 97.9–98.5; O2SAT 96–100
[2016-12-19] MEDS ORDERED: FOSPHENYTOIN SODIUM 100 MG PE/2 ML VIAL IV SCH (05:00)
[2016-12-19] MEDS: SODIUM CHLORIDE 0.9% FLUSH 10 ML FLUSH IV FLUSH SCH ×2 (08:34→21:22)
[2016-12-19] MEDS ORDERED: carBAMazepine 200 MG TAB PO SCH (09:00)
--- NOTE | 2016-12-19 11:35 | HHI.PR ---
Subjective Remarks He did well overnight, no further seizures. No headaches. Objective Vitals Vital Signs Date Time Temp Pulse Resp B/P (MAP) Pulse Ox O2 Delivery O2 Flow Rate FiO2 12/19/16 09:38 97 21 12/19/16 08:00 98.4 64 18 123/73 (90) 97 12/19/16 04:33 98.1 57 16 125/78 (94) 96 12/19/16 01:08 97.9 68 18 129/69 (89) 100 12/18/16 21:30 100 21 12/18/16 21:09 98.3 70 18 121/63 (82) 99 12/18/16 20:00 71 12/18/16 19:05 12/18/16 16:42 73 20 118/71 (87) 98 12/18/16 16:10 98 12/18/16 15:55 98.0 84 16 145/71 (95) 97 I/O 12/18/16 12/18/16 12/18/16 12/19/16 12/19/16 12/19/16 07:00 15:00 23:00 07:00 15:00 23:00 Intake Total 1000 ml 115 ml Balance 1000 ml 115 ml Intake IV Total 1000 ml 115 ml # Voids 1 # Bowel Movements 0 Result Diagram: 12/18/16 1610 12/18/16 1610 Objective Remarks GENERAL: Well-nourished, well-developed patient. SKIN: Warm and dry. HEAD: Normocephalic. EYES: No scleral icterus. No injection or drainage. NECK: Supple, trachea midline. No JVD or lymphadenopathy. CARDIOVASCULAR: Regular rate and rhythm without murmurs, gallops, or rubs. RESPIRATORY: Breath sounds equal bilaterally. No accessory muscle use. GASTROINTESTINAL: Abdomen soft, non-tender, nondistended. EXTREMITIES: No cyanosis, or edema. NEUROLOGICAL: Awake, alert, and oriented x 3. Non-focal. A/P Problem List: (1) Recurrent seizures ICD Code: G40.909 - Epilepsy, unspecified, not intractable, without status epilepticus Status: Acute (2) Seizure disorder ICD Code: G40.909 - Seizure disorder Status: Acute Assessment and Plan -Breakthrough seizures, negative head CT. We'll continue with Cerebyx loading. Consult neurology. Check EEG. Monitor him on telemetry. -DVT prophylaxis with SCDs. Discharge Planning Discharge home when cleared per neurology. Rianna Barrera MD Dec 19, 2016 11:35
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
[2016-12-19] MEDS ORDERED: levETIRAcetam 500MG PREMIX INJ 100 ML IV SCH (17:30)
[2016-12-19] MEDS: levETIRAcetam 500 MG/NS 100 ML IV SCH ×2 (18:12)
[2016-12-19] MEDS ORDERED: LORazepam 1 MG TAB PO ONE (21:00)
[2016-12-19] MEDS: carBAMazepine 200 MG TAB PO SCH (21:22)
[2016-12-20 01:15] VITALS: BP 121/67; PULSE 68; RESP 18; TEMP 98; O2SAT 99
[2016-12-20 04:12] VITALS: BP 104/67; PULSE 51; RESP 16; TEMP 98.3; O2SAT 98
[2016-12-20] MEDS: levETIRAcetam 500 MG/NS 100 ML IV SCH ×2 (05:40)
[2016-12-20] MEDS: SODIUM CHLORIDE 0.9% FLUSH 10 ML FLUSH IV FLUSH SCH (09:00)
[2016-12-20] MEDS: carBAMazepine 200 MG TAB PO SCH (09:05)
[2016-12-20 09:33] VITALS: BP 142/79; PULSE 62; RESP 15; TEMP 98.6; O2SAT 99
[2016-12-20] MEDS ORDERED: CARB200T PO (11:57)
[2016-12-20] MEDS ORDERED: LEVE500 PO (11:57)
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
--- NOTE | 2016-12-20 11:59 | HHI.DS ---
Discharge Summary Admission Date Dec 18, 2016 at 17:35 Discharge Date: Dec 20, 2016 Admitting Diagnosis uncontrolled seizure (1) Recurrent seizures ICD Code: G40.909 - Epilepsy, unspecified, not intractable, without status epilepticus Status: Acute (2) Seizure disorder ICD Code: G40.909 - Seizure disorder Status: Acute Procedures None Brief History - From Admission History of present illness from the admitting physician This is a 21 year-old male with past medical history of seizure disorder who presents today with 3 seizures. History obtained from the patient and his girlfriend. Normally he has partial seizures which consist of lip smacking however this morning his girlfriend states that he had a sustained tonic-clonic seizure lasting 10 minutes. She rolled him on his side. There is no tongue bite, loss of bowel or bladder continence. [facility] was called however the patient declined to come to the hospital. He slept and when he awoke several hours later he had another sustained seizure. [facility] was called again and he was brought to the hospital. He was discharged from the emergency department and his girlfriend states on the on the way home he sustained another seizure and thus was brought back to the emergency department. He was loaded with 1000 phenytoin equivalents of Cerebyx in the emergency department. The patient denies any recent changes to his seizure medications. He takes Tegretol. He denies headache, neck pain, fever, chills. Denies drug use. His neurologist is Dr. Palomares. CBC/BMP: 12/18/16 1610 12/18/16 1610 Significant Findings Laboratory Tests Test 12/18/16 16:10 12/18/16 21:25 Neutrophils (%) (Auto) 88.4 % (16.0-70.0) Lymphocytes (%) (Auto) 8.1 % (9.0-44.0) Lymphocytes # (Auto) 0.7 TH/MM3 (1.0-4.8) Random Glucose 108 MG/DL (74-106) Urine Cannabinoids Screen POS (NEG) Imaging Last Impressions Head CT 12/18/16 0000 Signed Impressions: Service Date/Time: Sunday, December 18, 2016 16:22 - CONCLUSION: Negative exam Donell Lara MD PE at Discharge GENERAL: Well-nourished, well-developed patient. SKIN: Warm and dry. HEAD: Normocephalic. EYES: No scleral icterus. No injection or drainage. NECK: Supple, trachea midline. No JVD or lymphadenopathy. CARDIOVASCULAR: Regular rate and rhythm without murmurs, gallops, or rubs. RESPIRATORY: Breath sounds equal bilaterally. No accessory muscle use. GASTROINTESTINAL: Abdomen soft, non-tender, nondistended. EXTREMITIES: No cyanosis, or edema. NEUROLOGICAL: Awake, alert, and oriented x 3. Non-focal. Pt update on day of discharge Patient reports he is feeling great. No further seizure activity is overnight. He wants to go home. We discussed discharge planning at length including new medications, and outpatient follow-up. Hospital Course 21-year-old male admitted with breakthrough seizures. The patient had a normal head CT. He was evaluated by neurology. His medications were adjusted. He remains seizure free and was cleared for discharge to follow up outpatient with neurology. The patient was discharged on Keppra 500 mg twice a day and Tegretol 400 mg twice a day. We discussed seizure precautions at length and the need to follow-up outpatient. Pt Condition on Discharge: Good Discharge Disposition: Discharge Home Discharge Time: <= 30 minutes Discharge Instructions DIET: Follow Instructions for: As Tolerated, No Restrictions Activities you can perform: See Additionl Instruction Other Activity Instructions: No driving/swimming/heights. Do not operate heavy machinery x 6 months of being seizure free Follow up Referrals: Neurology New Medications: Levetiracetam (Keppra) 500 Mg Tab 500 MG PO BID for Control Seizures, #60 TAB 0 Refills Changed Medications: Carbamazepine (Carbamazepine) 200 Mg Tab 400 MG PO Q12HR, #60 TAB 0 Refills (Changed from: HS) Discontinued Medications: Carbamazepine (Carbamazepine) 200 Mg Tab 200 MG PO DAILY, #60 TAB 0 Refills Fidelina Parr MD Dec 20, 2016 11:58
--- NOTE | 2016-12-21 08:17 | MG ---
cc: EBENEZER PALOMO M.D. Lab No: [id number] Date: 12/20/2016 Age: Sex: M Race: TECHNIQUE 17-channel EEG. DESCRIPTION: The background rhythm reveals an alpha rhythm. Frequency is roughly 8 Hz, amplitude is about 10-20 microvolts. There is ___ anterior decrement. There is mild slowing in the theta range probably related to drowsiness. Later in the tracing the patient falls asleep and normal sleep activity is seen as delta slowing and also sleep spindles present. No lateralizing features are identified. Photic results in a well-developed driving response. There is occasional sharp activity but probably related to vertex sharp waves of sleep. No definite epileptiform features are identified. INTERPRETATION Normal EEG in the awake and sleep state. Hyperventilation was done as well with no change in background rhythm. MD JAMAR Guzmán/TLL /1:14 PM /8:06 AM
== END 2016-12-20 12:49 | disposition home or self-care (01) | DRG 101 ==
LOC: PHED 15:48 → PHEDA 17:33 → OBSVTOIN 17:35 → PH3B 19:06
PROVIDERS: ADMIT Family Medicine; ATTEND Family Medicine
DX: G40.109 Localization-related (focal) (partial) symptomatic epilepsy and epileptic syndromes with simple partial seizures, not intractable, without status epilepticus (principal); F12.90 Cannabis use, unspecified, uncomplicated; G43.909 Migraine, unspecified, not intractable, without status migrainosus
CPT/HCPCS: 70450; 80053; 80307; 85025; 95819; 96365; J1885; J1953; J2060; J7030; Q2009

== ENCOUNTER → 2016-12-29 | Outpatient (CLI) | payer OTHER ==
[~2016-12-29] MED LIST changes: -ALBU6.7H INH; +LEVE500 PO
== END ==
LOC: PLAB 12:32
PROVIDERS: ATTEND Psychiatry & Neurology Neurology
DX: G40.909 Epilepsy, unspecified, not intractable, without status epilepticus (principal)
CPT/HCPCS: 80156

== ENCOUNTER → 2017-03-17 | Outpatient (CLI) | payer OTHER | LOC: PLAB 11:20 | PROVIDERS: ATTEND Psychiatry & Neurology Neurology | DX: G40.909 Epilepsy, unspecified, not intractable, without status epilepticus (principal) | CPT/HCPCS: 36415; 80156 ==

== ENCOUNTER → 2017-05-22 | Outpatient (CLI) | payer OTHER | LOC: PLAB 10:38 | PROVIDERS: ATTEND Psychiatry & Neurology Neurology | DX: G40.909 Epilepsy, unspecified, not intractable, without status epilepticus (principal) | CPT/HCPCS: 36415; 80156 ==

== ENCOUNTER → 2017-06-02 | Outpatient (CLI) | payer OTHER | LOC: PLAB 07:58 | PROVIDERS: ATTEND Psychiatry & Neurology Neurology | DX: G40.909 Epilepsy, unspecified, not intractable, without status epilepticus (principal) | CPT/HCPCS: 36415; 80156 ==

== ENCOUNTER → 2017-08-04 | Outpatient (CLI) | payer OTHER | LOC: PLAB 08:41 | PROVIDERS: ATTEND Psychiatry & Neurology Neurology | DX: G40.909 Epilepsy, unspecified, not intractable, without status epilepticus (principal) | CPT/HCPCS: 36415; 80156 ==

== ENCOUNTER → 2017-09-22 | Outpatient (CLI) | payer OTHER | LOC: PLAB 10:28 | PROVIDERS: ATTEND Psychiatry & Neurology Neurology | DX: G40.909 Epilepsy, unspecified, not intractable, without status epilepticus (principal) | CPT/HCPCS: 36415; 80156; 80164 ==